=== PATIENT | male | born 1990 | race Caucasian/White ===

== ENCOUNTER 2023-12-31 12:57 | Emergency (ER) | payer OTHER, SELFPAY ==
[2023-12-31 12:58] VITALS: BP 165/92; PULSE 104; RESP 16; TEMP 35.8; O2SAT 96; BMI 42.8
--- NOTE | 2023-12-31 13:10 | EX.ED.DYSGE1 ---
HPI <LORENE Teague - Last Filed: 12/31/23 15:58> History of Present Illness Chief Complaint: Complaint Narrative Narrative: Patient is a 33-year-old male with no significant medical history, presenting to the emergency department after being referred from an urgent care. The patient states over the last 1.5 weeks, he has noticed that he has been urinating constantly for 7 to 10 days. Patient states he just feels like he has to go all the time and every time he goes is a lot. He did not know if he had a UTI or what else was going on. Once he went to urgent care, they did a fingerstick blood glucose, it was 495. They then referred him here. Patient does not currently have a primary care physician. PFSH <LORENE Teague - Last Filed: 12/31/23 15:58> [facility] Medical History no medical history Home Medications ?Medication ?Instructions ?Recorded ?Last Taken ?Type metformin 500 mg tablet 500 mg PO BID #60 tabs 12/31/23 Unknown Rx Allergy/AdvReac Type Severity Reaction Status Date / Time No Known Allergies Allergy Verified 12/31/23 12:58 Social History Smoking Status: Light Smoker (<10/day) ROS <LORENE Teague - Last Filed: 12/31/23 15:58> ROS ED ROS Narrative Constitutional: Negative for fever, chills, weight loss, weakness Eyes: Negative for vision loss, vision change, double vision ENT: Negative for any sore throat, ear pain, congestion Cardiovascular: Negative for any chest pain, tightness, palpitations Respiratory: Negative for any cough, sputum production, hemoptysis, dyspnea, dyspnea on exertion, orthopnea Gastrointestinal: Negative for any abdominal pain, nausea, vomiting, diarrhea, constipation, blood in stool, blood in vomit : Negative for any dysuria, retention, blood in urine. Positive for urinary frequency Muscle skeletal: Negative for any neck pain, back pain Neurological: Negative for any headache, syncope, dizziness Skin: Negative for any rashes, itching, abrasions, lacerations Psychiatric: Negative for any depression, anxiety, stress, suicidal ideation, homicidal ideation Hematologic: Negative for any excessive bruising, easy bleeding EXAM <LORENE Teague Last Filed: 12/31/23 15:58> Physical Exam Narrative Exam Narrative: Vital signs reviewed. HEET: Head normocephalic atraumatic, TMs clear bilaterally. Posterior pharynx is clear, dry mucous membranes. Nares clear bilaterally. Neck: Supple with no lymphadenopathy or tenderness. No signs of meningismus. Cardiac: Regular rate and rhythm no murmurs gallops or rubs, equal peripheral pulses bilaterally. Respiratory: Lungs clear to auscultation bilaterally. No chest tenderness. Abdomen: Soft, nontender, nondistended. No abdominal bruit or pulsatile masses. No hepatosplenomegaly Extremities: No peripheral edema, no signs of gross trauma or deformity. Active full range of motion of all extremities. Neuro: Cranial nerves II through XII intact, no focal neurological deficits. Skin: Clean dry and intact with no rash, purpura, petechiae, vesicles or pustules. Backs/flank: No CVA tenderness, no midline spinal tenderness, no deformity. Psych: Normal mood and affect. No SI, HI or acute psychosis. Const Vital Signs: 12/31/23 12:58 12/31/23 13:06 12/31/23 14:22 Temperature 96.5 F L Temperature Source Temporal Pulse Rate 104 H 88 Respiratory Rate 16 16 Respiratory Effort Normal Non-Labored Respiratory Pattern Normal Blood Pressure 165/92 H 151/81 H Blood Pressure Mean 116 104 Pulse Ox 96 95 Oxygen Delivery Method Room Air Room Air <Dr. Lea Childs DO - Last Filed: 01/04/24 01:33> Physical Exam Const Vital Signs: 12/31/23 12:58 12/31/23 13:06 12/31/23 14:22 Temperature 96.5 F L Temperature Source Temporal Pulse Rate 104 H 88 Respiratory Rate 16 16 Respiratory Effort Normal Non-Labored Respiratory Pattern Normal Blood Pressure 165/92 H 151/81 H Blood Pressure Mean 116 104 Pulse Ox 96 95 Oxygen Delivery Method Room Air Room Air [facility] <LROENE Teague - Last Filed: 12/31/23 15:58> [facility] Lab Data Labs: Laboratory Results - last 24 hr 12/31/23 12/31/23 12/31/23 13:20 14:00 15:23 WBC 9.4 RBC 5.50 Hgb 16.6 H Hct 48.5 MCV 88.2 MCH 30.2 MCHC 34.2 RDW Std Deviation 38.3 RDW Coeff of Matthew 11.9 Plt Count 308 MPV 10.4 Immature Gran % (Auto) 0.300 Neut % (Auto) 61.7 Lymph % (Auto) 28.8 [place] % (Auto) 7.2 Eos % (Auto) 1.5 Baso % (Auto) 0.5 Absolute Neuts (auto) 5.8 Absolute Lymphs (auto) 2.72 Nucleated RBC % 0 Sodium 132 L Potassium 4.3 Chloride 98 Carbon Dioxide 27.0 Anion Gap 7 BUN 15 Creatinine 1.26 Estim Creat Clear Calc 130.86 Est GFR (MDRD) Af Amer 85 Est GFR (MDRD) Non-Af 70 BUN/Creatinine Ratio 11.9 Glucose 497 H* Calcium 9.7 Total Bilirubin 0.50 AST 62 H ALT 108 H Alkaline Phosphatase 112 Total Protein 8.1 Albumin 3.8 Globulin 4.3 H Albumin/Globulin Ratio 0.9 Urine Color Yellow Urine Clarity Clear Urine pH 6.0 Ur Specific Debary 1.010 Urine Protein Negative Urine Glucose (UA) 1000 H Urine Ketones Negative Urine Occult Blood Negative Urine Nitrite Negative Urine Bilirubin Negative Urine Urobilinogen Normal Ur Leukocyte Esterase Negative Urine RBC 0 SEEN Urine WBC 0 SEEN Ur Squamous Epith Cells 0 SEEN Urine Bacteria 0 SEEN Urine Mucus 0 SEEN Acetone Level NEGATIVE POC Glucose 400 H ABG Data ABG results: ABG 12/31/23 13:29 Specimen Type JONATHON Sample Site Not entered VBG pH 7.35 VBG pO2 34 VBG HCO3 27 H VBG Total CO2 29 VBG O2 Sat (Calc) 62 VBG Base Excess 2 POC Mix VBG pCO2 Pt Tmp 48.9 O2 Delivery Device Not entered Treatment and Re-Evaluation :: Differential diagnosis includes however is not limited to: DKA, UTI, new onset type 2 diabetes, acute kidney injury Patient appears to be in no obvious respiratory distress vital signs are stable. Presenting to the emergency department with complaints of polyuria, polydipsia, blood sugar 495 with no history of diabetes. Speaking with the patient, the patient is aware of type 2 diabetes, I did speak with him regarding his laboratory values, what we are doing is to ensure that he is not in DKA. Patient dates he has no chest pain shortness of breath. His biggest complaint was the frequent urination. Patient will need to have follow-up with the PCP, patient will receive some basic laboratory values, IV fluids, patient will be reevaluated. Patient CBC was unremarkable, laboratory values show slight hyponatremia, patient's blood glucose here was 497, AST slightly elevated 62 with an ALT of 108, acetone level was negative. VBG unremarkable. Patient will receive a second liter of normal saline. Patient's repeat blood sugar was 400. Patient given 10 units of Humulin R subcutaneous. Patient will be given a prescription for metformin 500 mg twice a day. He will be given referral to multiple primary care physicians. Patient was educated regarding diabetes, with next steps are. Patient's mother does have a brand-new glucometer with glucometer test strips, he will use this. He is instructed return for any worsening symptoms. Patient stable for discharge. <Dr. Lea Childs, DO - Last Filed: 01/04/24 01:33> [facility] Lab Data Attestation: I reviewed the patient's lab results. Labs: Laboratory Results - last 24 hr 12/31/23 12/31/23 12/31/23 13:20 14:00 15:23 WBC 9.4 RBC 5.50 Hgb 16.6 H Hct 48.5 MCV 88.2 MCH 30.2 MCHC 34.2 RDW Std Deviation 38.3 RDW Coeff of Matthew 11.9 Plt Count 308 MPV 10.4 Immature Gran % (Auto) 0.300 Neut % (Auto) 61.7 Lymph % (Auto) 28.8 [place] % (Auto) 7.2 Eos % (Auto) 1.5 Baso % (Auto) 0.5 Absolute Neuts (auto) 5.8 Absolute Lymphs (auto) 2.72 Nucleated RBC % 0 Sodium 132 L Potassium 4.3 Chloride 98 Carbon Dioxide 27.0 Anion Gap 7 BUN 15 Creatinine 1.26 Estim Creat Clear Calc 130.86 Est GFR (MDRD) Af Amer 85 Est GFR (MDRD) Non-Af 70 BUN/Creatinine Ratio 11.9 Glucose 497 H* Calcium 9.7 Total Bilirubin 0.50 AST 62 H ALT 108 H Alkaline Phosphatase 112 Total Protein 8.1 Albumin 3.8 Globulin 4.3 H Albumin/Globulin Ratio 0.9 Urine Color Yellow Urine Clarity Clear Urine pH 6.0 Ur Specific Debary 1.010 Urine Protein Negative Urine Glucose (UA) 1000 H Urine Ketones Negative Urine Occult Blood Negative Urine Nitrite Negative Urine Bilirubin Negative Urine Urobilinogen Normal Ur Leukocyte Esterase Negative Urine RBC 0 SEEN Urine WBC 0 SEEN Ur Squamous Epith Cells 0 SEEN Urine Bacteria 0 SEEN Urine Mucus 0 SEEN Acetone Level NEGATIVE POC Glucose 400 H ABG Data ABG results: ABG 12/31/23 13:29 Specimen Type JONATHON Sample Site Not entered VBG pH 7.35 VBG pO2 34 VBG HCO3 27 H VBG Total CO2 29 VBG O2 Sat (Calc) 62 VBG Base Excess 2 POC Mix VBG pCO2 Pt Tmp 48.9 O2 Delivery Device Not entered Treatment and Re-Evaluation :: Differential diagnosis includes however is not limited to: DKA, UTI, new onset type 2 diabetes, acute kidney injury Patient appears to be in no obvious respiratory distress vital signs are stable. Presenting to the emergency department with complaints of polyuria, polydipsia, blood sugar 495 with no history of diabetes. Speaking with the patient, the patient is aware of type 2 diabetes, I did speak with him regarding his laboratory values, what we are doing is to ensure that he is not in DKA. Patient dates he has no chest pain shortness of breath. His biggest complaint was the frequent urination. Patient will need to have follow-up with the PCP, patient will receive some basic laboratory values, IV fluids, patient will be reevaluated. Patient CBC was unremarkable, laboratory values show slight hyponatremia, patient's blood glucose here was 497, AST slightly elevated 62 with an ALT of 108, acetone level was negative. VBG unremarkable. Patient will receive a second liter of normal saline. Patient's repeat blood sugar was 400. Patient given 10 units of Humulin R subcutaneous. Patient will be given a prescription for metformin 500 mg twice a day. He will be given referral to multiple primary care physicians. Patient was educated regarding diabetes, with next steps are. Patient's mother does have a brand-new glucometer with glucometer test strips, he will use this. He is instructed return for any worsening symptoms. Patient stable for discharge. I have personally performed a face to face assessment of the patient and have reviewed the SALOM[facility]N Note. I performed a substantive portion of the visit including all aspects of the following. My lisa findings include: History is patient is a 33-year-old female presenting for polyuria pyelectasia. He has hyperglycemia and suspect this is new onset diabetic. He is not in DKA or HHNK. He is given IV fluids and repeat blood sugar went from 4 97-400. Patient is given dose of insulin in the emergency room. Will be started on metformin. Mother has a glucometer for him to use. Is given outpatient PCP follow-up information. Given return precautions. At this time we will try to treat this outpatient as he is not appear to have any other complications associated with hyperglycemia. Other additions or changes: [None] Discharge Plan Triage Chief Complaint: Complaint ED Midlevel Provider: Mack Butterfield ED Provider: Lea Childs Dx/Rx/DC Orders Clinical Impression: Diabetes mellitus, Acute hyperglycemia, Frequency of urination and polyuria Instructions: Diabetes: Meal Planning, ED Diabetic Hyperglycemia, ED Hyperglycemia New Poss Diabetes Prescriptions: New metformin 500 mg tablet 500 mg PO BID Qty: 60 2RF Primary Care Provider: Care Physician,No Primary Referrals: Jennifer Butterfield MD [Med Staff - Forklift Mechanic] - Walter Briones DO [Med Staff - Forklift Mechanic] - Care Physician,No Primary [Primary Care Provider] - Activity Restrictions/Additional Instructions: Check your blood sugar once a day, take the metformin twice a day every day. Follow-up outpatient. Print Language: Slovenian Disposition Disposition: Home, Self Care Discharge Date/Time: 12/31/23 16:30
[2023-12-31] MEDS: 0.9% Normal Saline (1000mL) 1,000 ML 999 ML IV ×2 (13:26→14:21)
[2023-12-31 13:34] LABS: Absolute Lymphocyte Count 2.72 X10^3/uL (0.83-4.51); Absolute Neutrophil Count 5.8 X10^3/uL (2.0-7.7); Basophil# 0.05 X10^3/uL; Basophil% 0.5 % (0-1); Eosinophil# 0.14 X10^3/uL; Eosinophils% 1.5 % (0-5); Hematocrit 48.5 % (40-54); Hemoglobin 16.6 g/dL (13.0-16.5); Lymphocyte # 2.72 X10^3/ul (0.83-4.51); Lymphocyte % 28.8 % (19-41); Mean Corp Hgb Conc 34.2 g/dL (32-36); Mean Corpuscular Hgb 30.2 pg (27.0-32.0); Mean Corpuscular Volume 88.2 fL (80-94); Mean Platelet Vol. 10.4 fl (6.2-12.0); Monocyte# 0.68 X10^3/uL; Monocyte% 7.2 % (0-10); NRBC Flagged by Analyzer 0 % (0-5); Neutrophil # 5.82 X10^3/uL (2.7-7.7); Neutrophil % 61.7 % (47-70); Platelet Count 308 K/mm3 (150-450); RBC Distribution Width CV 11.9 % (11.6-14.6); RBC Distribution Width SD 38.3 fl (35.1-43.9); White Blood Count 9.4 K/mm3 (4.4-11.0)
[2023-12-31 13:34] LABS: Blood Gas Specimen Type VEN; O2 Delivery Device Not entered; SITE Not entered; VBG BASE EXCESS 2 mmol/L (-1.0-3.5); VBG Bicarbonate 27 mmol/L (22-26); VBG PO2 34 mmHg (25-40); VBG SO2 62 % (50-70); VBG TCO2 29 mmol/L (23-33); VBG pCO2 48.9 mmHg (41-51); VBG pH 7.35 (7.32-7.42)
[2023-12-31 14:04] LABS: ALB/GLOB Ratio 0.9 RATIO (0.9-2.4); AST(SGOT) 62 U/L (15-37); Alanine Aminotransfer ALT/SGPT 108 U/L (16-61); Albumin, Serum 3.8 g/dL (3.2-5.0); Alkaline Phosphatase 112 U/L (45-117); Anion Gap 7 (5-15); BUN 15 mg/dL (7-18); BUN/Creat Ratio 11.9 RATIO (10-20); Calcium,Total 9.7 mg/dL (8.5-10.1); Chloride 98 mmol/L (98-107); Creatinine, Serum 1.26 mg/dL (0.70-1.30); EST Glomerular Filtration Rate 70 mL/min (>60); Est Glom Filt Rate - Afr Amer 85 mL/min (>60); Estimated Creatinine Clearance 130.86 ml/min; Globulin 4.3 g/dL (2.2-4.2); Glucose 497 mg/dL (74-106); Potassium 4.3 mmol/L (3.5-5.1); Protein, Total 8.1 g/dL (6.4-8.2); Sodium Level 132 mmol/L (136-145)
[2023-12-31 14:09] LABS: Bacteria 0 SEEN /hpf (None Seen); Mucous, Urine 0 SEEN /hpf (<or=2+); Red Blood Cells-Urine 0 SEEN /hpf (0-5); Squamous Epithelial Cells - UA 0 SEEN /hpf (0-5); White Blood Cells 0 SEEN /hpf (0-5)
[2023-12-31 14:10] LABS: Color, Urine Yellow (Yellow); Glucose, Dipstick 1000 mg/dl (Normal); Ketone-Dipstick Negative (Negative); Leukocyte Esterase-Dipstick Negative /ul (Negative); Nitrite-Dipstick Negative (Negative); Occult Blood-Urine Negative /ul (Negative); Protein-Dipstick Negative (Negative); Urine Bilirubin Dipstick Negative (Negative); Urine Clarity Clear (Clear); Urine Urobilinogen Normal (Normal)
[2023-12-31 14:22] VITALS: BP 151/81; PULSE 88; RESP 16; O2SAT 95
--- NOTE | 2023-12-31 15:20 | CM.ED ---
Social Work: Date of referral: 12/31/23 Reason for referral: New Diabetes diagnosis; patient requesting resources. Referred by: ED doctor Patient granted consent for social work visit. Patient's mother was in the room with patient wand patient was tearful as he began to talk about his new diagnosis. protective services social worker provided emotional support, comfort and reassurance. Patient's mother reported she used to care for a different family member who had diabetes and she was able to help make sure it was controlled and will be able to help her son with his diet. protective services social worker went over requested written material and also verbally educated patient on information such as: What is Diabetes, Managing Diabetes, Living with Diabetes and Preventing Diabetic Problems. protective services social worker also talked with patient about the importance of getting connected with a strong healthcare team who can provide a more thorough/detailed and medically oriented assessment and education which patient stated he will get connected to. Patient voiced his appreciation for the visit. No other information or resources needed at this time. Julianna Nunez, GREENHOUSE MANAGER, M[employer]IM[employer] EDITOR
[2023-12-31 15:41] LABS: Bedside Glucose 400 mg/dL (74-106)
[2023-12-31] MEDS: Insulin Lispro 100 UNIT/ML INSULN.PEN 10 UNIT SC (15:55)
[2023-12-31 15:59] VITALS: BP 130/90; PULSE 87; RESP 16; O2SAT 97
[2023-12-31 16:29] VITALS: BP 137/85; PULSE 102; RESP 18; TEMP 36.6; O2SAT 95
== END 2023-12-31 16:30 | disposition home or self-care (01) ==
PROVIDERS: Nurse Practitioner; Emergency Provider Emergency Medicine; Visit Provider Emergency Medicine
DX: E11.65 Type 2 diabetes mellitus with hyperglycemia (principal); R35.0 Frequency of micturition; R35.89 Other polyuria; F17.200 Nicotine dependence, unspecified, uncomplicated
CPT/HCPCS: 80053; 81001; 82009; 82803; 82962; 85025; 96360; 96361; 99284; J7030; A4216